=== PATIENT | female | born 2000 | race Caucasian/White ===

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

== ENCOUNTER 2020-09-19 04:50 | Emergency (ER) | payer OTHER ==
[2020-09-19 05:08] VITALS: BP 134/79; TEMP 98.2; BMI 30.3
[2020-09-19] MEDS ORDERED: predniSONE 20 MG TABLET (UD) PO ONE (05:14)
[2020-09-19] MEDS ORDERED: predniSONE 20 MG TABLET (UD) ONE (05:24)
[2020-09-19] MEDS ORDERED: ALBUTEROL SO4 2.5/IPRATROPIUM 0.5 INH SOL 3 ML VIAL.NEB. NEB ONE (05:25)
[2020-09-19] MEDS: ALBUTEROL SO4 2.5/IPRATROPIUM 0.5 INH SOL 3 ML VIAL.NEB. NEB SCH (05:34)
[2020-09-19 06:27] VITALS: PULSE 100
== END 2020-09-19 06:54 | disposition home or self-care (01) ==
LOC: JER 04:50
PROC: 3E0F7GC Introduction of Other Therapeutic Substance into Respiratory Tract, Via Natural or Artificial Opening (ICD-10-PCS; principal; 2020-09-19)
DX: J45.31 Mild persistent asthma with (acute) exacerbation (principal)
CPT/HCPCS: 99283-25